=== PATIENT | female | born 1990 | race Two or more races ===

== ENCOUNTER 2024-04-09 17:12 | Emergency (ER) | payer OTHER ==
[~2024-04-09] VITALS: Ht 157.5 cm; Wt 70.8 kg
[2024-04-09] MEDS ORDERED: ACET-2605 PO (18:15)
[2024-04-09] MEDS ORDERED: CEFD300C3 PO (18:15)
[2024-04-09 18:22] VITALS: BP 115/70; TEMP 98; O2SAT 99
== END 2024-04-09 18:22 | disposition home or self-care (01) ==
LOC: ER 17:40
DX: O22.00 Varicose veins of lower extremity in pregnancy, unspecified trimester (principal); L03.116 Cellulitis of left lower limb; Z3A.00 Weeks of gestation of pregnancy not specified